=== PATIENT | male | born 1945 | race Caucasian/White ===

== ENCOUNTER 2016-10-08 08:34 | Day surgery (SDC) | payer OTHER ==
[~2016-10-08] VITALS: Ht 172.7 cm; Wt 78.2 kg
[2016-10-08] MEDS ORDERED: SODIUM CHLORIDE 0.9% 1,000 ML IV ONE ×2 (08:52→09:00)
[2016-10-08] MEDS ORDERED: AMLO-512 PO (09:20)
[2016-10-08] MEDS ORDERED: MIRT15 PO (09:20)
[2016-10-08] MEDS ORDERED: CARV25 PO (09:20)
[2016-10-08] MEDS ORDERED: GABA-531 PO (09:20)
[2016-10-08] MEDS ORDERED: VENL-68 PO (09:20)
[2016-10-08] MEDS ORDERED: FURO20 PO (09:20)
[2016-10-08] MEDS ORDERED: VITAD1000 PO (09:20)
[2016-10-08] MEDS ORDERED: LIDOCAINE HCL/PF 1% 30 ML VIAL ONE (10:19)
[2016-10-08] MEDS ORDERED: IOHEXOL 300 MG/ML 10 ML VIAL ONE (10:20)
[2016-10-08 10:22] VITALS: BP 154/96
[2016-10-08] MEDS ORDERED: BUPIVACAINE HCL/PF 0.75% 10 ML VIAL ONE (10:39)
[2016-10-08 10:41] VITALS: BP 112/78
[2016-10-08] MEDS ORDERED: BUPIVACAINE HCL/PF 0.75% 10 ML VIAL IARTIC ONE (10:45)
[2016-10-08] MEDS ORDERED: LIDOCAINE HCL/PF 1% 30 ML VIAL INJ ONE (10:45)
[2016-10-08] MEDS ORDERED: IOHEXOL 300 MG/ML 10 ML VIAL IARTIC ONE (10:45)
== END 2016-10-08 11:15 | disposition home or self-care (01) ==
LOC: SDS 08:34
PROVIDERS: ATTEND Physical Medicine & Rehabilitation Pain Medicine
DX: M54.16 Radiculopathy, lumbar region (principal); C64.1 Malignant neoplasm of right kidney, except renal pelvis; M54.9 Dorsalgia, unspecified; F14.21 Cocaine dependence, in remission; Z87.891 Personal history of nicotine dependence; Z98.890 Other specified postprocedural states
CPT/HCPCS: 64483; J1040; J3490 ×2; J7030; Q9967